=== PATIENT | male | born 1985 ===

== ENCOUNTER 2024-02-21 15:22 | Emergency (ER) | payer BC ==
[2024-02-21 15:31] VITALS: TEMP 98.2
--- NOTE | 2024-02-21 15:55 | ED ---
General Adult HPI - General Chief complaint: Recheck/Abnormal Lab/Rx Stated complaint: back pain, abn blood pressure Time Seen by Provider: 02/21/24 15:33 Source: patient Mode of arrival: ambulatory Limitations: no limitations - History of Present Illness Initial comments: Dictation was produced using [employer] dictation software. please excuse any grammatical, word or spelling errors. Chief Complaint: 38-year-old male with hypertension History of Present Illness: Patient is a 38-year-old male presents emergency department for hypertension. Patient is been at [facility] for allegedly 3 to 4 days. States that he had his blood pressure checked and was found to be high. States that systolic was measured 170s. He was brought to the emergency department. Patient has no complaints. Denies any chest pain shortness of breath strokelike symptoms or headache. Patient would like his blood pressure addressed so that he can go back to [facility]. Patient states he is at [facility] for detox from alcohol The ROS documented in this emergency department record has been reviewed and confirmed by me. Those systems with pertinent positive or negative responses have been documented in the HPI. All other systems are other negative and/or noncontributory. - Related Data Previous Rx's Medication Instructions Recorded hydroCHLOROthiazide 12.5 mg PO DAILY 7 Days #7 cap 02/21/24 Allergies Allergy/AdvReac Type Severity Reaction Status Date / Time lorazepam [From Ativan] Allergy Hallucinati Verified 02/21/24 15:31 ons Review of Systems ROS Statement: Those systems with pertinent positive or pertinent negative responses have been documented in the HPI. ROS Other: All systems not noted in ROS Statement are negative. Past Medical History Past Medical History: GERD/Reflux, Hypertension Additional Past Medical History / Comment(s): Gout, Migraines, History of Any Multi-Drug Resistant Organisms: None Reported Past Surgical History: Adenoidectomy, Tonsillectomy Past Psychological History: Anxiety Smoking Status: Vaper Past Alcohol Use History: Abuse, Daily Past Drug Use History: Marijuana General Exam - General Exam Comments Initial Comments: PHYSICAL EXAM: General Impression: Alert and oriented x3, not in acute distress HEENT: Normocephalic atraumatic, extra-ocular movements intact, pupils equal and reactive to light bilaterally, mucous membranes moist. Cardiovascular: Heart regular rate and rhythm Chest: Able to complete full sentences, no retractions, no tachypnea Abdomen: abdomen soft, non-tender, non-distended, no organomegaly Musculoskeletal: Pulses present and equal in all extremities, no peripheral edema Motor: no focal deficits noted Neurological: CN II-XII grossly intact, no focal motor or sensory deficits noted Skin: Intact with no visualized rashes Psych: Normal affect and mood Limitations: no limitations Course Vital Signs 02/21/24 02/21/24 02/21/24 15:26 16:20 17:48 Temperature 98.2 F Pulse Rate 77 75 Respiratory 16 18 Rate Blood Pressure 198/116 165/109 159/99 O2 Sat by Pulse 100 99 Oximetry Medical Decision Making - Medical Decision Making Was pt. sent in by a medical professional or institution (, PA, INSURANCE ACCOUNT MANAGER, urgent care, hospital, or snf...) When possible be specific @ -No Did you speak to anyone other than the patient for history (EMS, parent, family, police, friend...)? What history was obtained from this source @ -No Did you review nursing and triage notes (agree or disagree)? Why? @ -I reviewed and agree with nursing and triage notes Were old charts reviewed (outside hosp., previous admission, EMS record, old EKG, old radiological studies, urgent care reports/EKG's, snf records)? Report findings @ -No old charts were reviewed Differential Diagnosis (chest pain, altered mental status, abdominal pain women, abdominal pain men, vaginal bleeding, musculoskeletal, weakness, fever, dyspnea, syncope, headache, dizziness, GI bleed, back pain, seizure, CVA, palpatations, mental health)? @ -Not applicable EKG interpreted by me (3pts min.). @ -None done X-rays interpreted by me (1pt min.). @ -None done CT interpreted by me (1pt min.). @ -None done U/S interpreted by me (1pt. min.). @ -None done What testing was considered but not performed or refused? (CT, X-rays, U/S, labs)? Why? @ -None What meds were considered but not given or refused? Why? @ -None Was smoking cessation discussed for >3mins.? @ -No Were there social determinants of health that impacted care today? How? (Homelessness, low income, unemployed, alcoholism, drug addiction, transportation, low edu. Level, literacy, decrease access to med. care, snf, rehab)? @ -No Was there de-escalation of care discussed even if they declined (Discuss DNR or withdrawal of care, Hospice)? DNR status @ -No What co-morbidities impacted this encounter? (DM, HTN, Smoking, COPD, CAD, Cancer, CVA, ARF, Chemo, Hep., AIDS, mental health diagnosis, sleep apnea, morbid obesity)? @ -None Was patient admitted / discharged? Hospital course, mention meds given and route, prescriptions, significant lab abnormalities, going to OR and other pertinent info. @ -38-year-old male presents to the emergency department for asymptomatic hypertension. Currently at [facility]. Vital signs upon arrival shows blood pressure of 198/116. Repeat is 165/109. Patient does have history of hypertension. States that he takes atenolol once daily. Patient has no symptoms of hypertensive emergency. Laboratory evaluation obtained. CBC metabolic panel is within acceptable limits. Slight hypokalemia 3.2. Patient given p.o. potassium. Disposition options were discussed. Patient offered hydrochlorothiazide to be added to his current blood pressure regimen. Patient also told that he could opt to not take it and to follow-up with his primary care doctor instead. Patient states that he would like to try hydrochlorothiazide for couple weeks. Repeat blood pressure was 159/99. Return precautions discussed. Patient agreeable with discharge Did you discuss the management of the patient with other professionals (professionals i.e. , PA, INSURANCE ACCOUNT MANAGER, lab, RT, psych nurse, social worker delinquency prevention, application assistant, teacher, correction officer reformatory, test case developer)? Give summary @ -No Was critical care preformed (if so, how long)? @ -No Undiagnosed new problem with uncertain prognosis? @ -No Drug Therapy requiring intensive monitoring for toxicity (Heparin, Nitro, Insulin, Cardizem)? @ -No Were any procedures done? @ -No Diagnosis/symptom? Acute, or Chronic, or Acute on Chronic? Uncomplicated (wi thout systemic symptoms) or Complicated (systemic symptoms)? @ -Asymptomatic hypertension Side effects of treatment? @ -No Exacerbation, Progression, or Severe Exacerbation? @ -No Poses a threat to life or bodily function? How? (Chest pain, [place], [place], pneumonia, PE, COPD, DKA, ARF, appy, cholecystitis, CVA, Diverticulitis, Homicidal, Suicidal, threat to staff... and all critical care pts) @ -No - Lab Data Result diagrams: 02/21/24 16:41 02/21/24 16:41 Lab Results 02/21/24 02/21/24 Range/Units 16:41 16:41 WBC 5.9 (3.8-10.6) k/uL RBC 4.91 (4.30-5.90) m/uL Hgb 13.9 (13.0-17.5) gm/dL Hct 43.2 (39.0-53.0) % MCV 88.0 (80.0-100.0) fL MCH 28.3 (25.0-35.0) pg MCHC 32.2 (31.0-37.0) g/dL RDW 13.2 (11.5-15.5) % Plt Count 153 (150-450) k/uL MPV 10.5 Neutrophils % 64 % Lymphocytes % 23 % Monocytes % 9 % Eosinophils % 1 % Basophils % 1 % Neutrophils # 3.8 (1.3-7.7) k/uL Lymphocytes # 1.4 (1.0-4.8) k/uL Monocytes # 0.5 (0-1.0) k/uL Eosinophils # 0.1 (0-0.7) k/uL Basophils # 0.1 (0-0.2) k/uL Sodium 135 L (137-145) mmol/L Potassium 3.2 L (3.5-5.1) mmol/L Chloride 99 (98-107) mmol/L Carbon Dioxide 24 (22-30) mmol/L Anion Gap 12 mmol/L BUN 10 (9-20) mg/dL Creatinine 0.65 L (0.66-1.25) mg/dL Est GFR (CKD-EPI)AfAm >90 (>60 ml/min/1.73 sqM) Est GFR (CKD-EPI)NonAf >90 (>60 ml/min/1.73 sqM) Glucose 93 (74-99) mg/dL Calcium 9.5 (8.4-10.2) mg/dL Total Bilirubin 1.5 H (0.2-1.3) mg/dL AST 29 (17-59) U/L ALT 14 (4-49) U/L Alkaline Phosphatase 58 (38-126) U/L Total Protein 7.4 (6.3-8.2) g/dL Albumin 4.6 (3.5-5.0) g/dL Disposition Clinical Impression: Hypertension Disposition: HOME SELF-CARE Condition: Good Instructions (If sedation given, give patient instructions): Hy drochlorothiazide (By mouth) Prescriptions: hydroCHLOROthiazide 12.5 mg PO DAILY 7 Days #7 cap Is patient prescribed a controlled substance at d/c from ED?: No Referrals: Jose Barbosa MD [Primary Care Provider] - 1-2 days Time of Disposition: 17:57
[2024-02-21 16:56] LABS: Basophils # (A) 0.1 k/uL (0-0.2); Basophils % (A) 1 %; Eosinophils # (A) 0.1 k/uL (0-0.7); Eosinophils % (A) 1 %; HCT 43.2 % (39.0-53.0); HGB 13.9 gm/dL (13.0-17.5); Lymphocytes # (A) 1.4 k/uL (1.0-4.8); Lymphocytes % (A) 23 %; MCH 28.3 pg (25.0-35.0); MCHC 32.2 g/dL (31.0-37.0); Mean Platelet Volume 10.5; Monocytes # (A) 0.5 k/uL (0-1.0); Monocytes % (A) 9 %; Neutrophils # (A) 3.8 k/uL (1.3-7.7); Neutrophils % (A) 64 %; Platelet Count 153 k/uL (150-450); RBC 4.91 m/uL (4.30-5.90); RDW 13.2 % (11.5-15.5); WBC 5.9 k/uL (3.8-10.6)
[2024-02-21 17:12] LABS: ALT 14 U/L (4-49); AST 29 U/L (17-59); Albumin 4.6 g/dL (3.5-5.0); Alkaline Phosphatase 58 U/L (38-126); Anion Gap 12 mmol/L; Carbon Dioxide 24 mmol/L (22-30); Chloride 99 mmol/L (98-107); Sodium 135 mmol/L (137-145); Total Protein 7.4 g/dL (6.3-8.2)
[2024-02-21 17:13] LABS: Glucose 93 mg/dL (74-99)
[2024-02-21 17:14] LABS: African American GFR (CKD) >90 (>60 ml/min/1.73 sqM); Blood Urea Nitrogen 10 mg/dL (9-20); Calcium 9.5 mg/dL (8.4-10.2); Non-African American GFR(CKD) >90 (>60 ml/min/1.73 sqM); Potassium 3.2 mmol/L (3.5-5.1); Total Bilirubin 1.5 mg/dL (0.2-1.3)
[2024-02-21 17:50] VITALS: BP 159/99; PULSE 75; RESP 18
[2024-02-21] MEDS: POTASSIUM CHLORIDE ER 20 MEQ TAB.ER PO STA (18:11)
[2024-02-21] MEDS: hydroCHLOROthiazide 12.5 MG CAP PO STA (18:12)
== END 2024-02-21 18:23 | disposition home or self-care (01) ==
LOC: EC 15:22
DX: I10 Essential (primary) hypertension (principal); F17.290 Nicotine dependence, other tobacco product, uncomplicated; Z88.8 Allergy status to other drugs, medicaments and biological substances
CPT/HCPCS: 36415; 80053; 85025; 99283

== ENCOUNTER 2024-03-02 19:35 | Emergency (ER) | payer OTHER ==
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
[2024-03-02] MEDS: KETOROLAC 15 MG/ML 1 ML VIAL IVP STA ×2 (20:18→21:50)
[2024-03-02] MEDS: SODIUM CHLORIDE 0.9% 1,000 ML IV STA (20:19)
[2024-03-02 20:31] LABS: Basophils # (A) 0.1 k/uL (0-0.2); Basophils % (A) 1 %; Eosinophils # (A) 0.1 k/uL (0-0.7); Eosinophils % (A) 1 %; HCT 36.7 % (39.0-53.0); Lymphocytes % (A) 34 %; MCHC 32.6 g/dL (31.0-37.0); Mean Platelet Volume 9.1; Monocytes # (A) 0.3 k/uL (0-1.0); Monocytes % (A) 5 %; Neutrophils # (A) 3.3 k/uL (1.3-7.7); Neutrophils % (A) 56 %; Platelet Count 187 k/uL (150-450); RBC 4.13 m/uL (4.30-5.90); RDW 13.7 % (11.5-15.5); WBC 5.9 k/uL (3.8-10.6)
[2024-03-02 20:39] LABS: ALT 15 U/L (4-49); AST 24 U/L (17-59); African American GFR (CKD) >90 (>60 ml/min/1.73 sqM); Alkaline Phosphatase 41 U/L (38-126); Amylase 41 U/L (30-110); Anion Gap 4 mmol/L; Blood Urea Nitrogen 17 mg/dL (9-20); Carbon Dioxide 29 mmol/L (22-30); Chloride 107 mmol/L (98-107); Glucose 114 mg/dL (74-99); Lipase 212 U/L (23-300); Non-African American GFR(CKD) >90 (>60 ml/min/1.73 sqM); Potassium 4.1 mmol/L (3.5-5.1); Sodium 140 mmol/L (137-145); Total Bilirubin 0.3 mg/dL (0.2-1.3); Total Protein 6.5 g/dL (6.3-8.2)
--- NOTE | 2024-03-02 21:14 | CT ---
EXAMINATION TYPE: CT abdomen pelvis w con CT DLP: 1386.5 mGycm, Automated exposure control for dose reduction was used. DATE OF EXAM: 03/02/2024 8:38 PM COMPARISON: CT abdomen pelvis most recent from CLINICAL INDICATION:Male, 38 years old with history of abdominal pain, hernia; Umbilical pain x4 days . TECHNIQUE: Axial CT abdomen pelvis w con;Sagittal and coronal reformats were created on a separate w orkstation. Contrast used:100ml mL of Isovue 300 with IV Contrast, (none if empty) Oral contrast used: without Oral Contrast (none if empty) FINDINGS: LOWER CHEST: Unremarkable ABDOMEN LIVER: Subcentimeter hypoattenuated foci seen to small to characterize. The liver is enlarged measuri ng 20.0 cm in craniocaudal dimension.. GALLBLADDER AND BILE DUCTS: The gallbladder is nondistended with no gross abnormality. No biliary karthikeyan marija dilatation. PANCREAS: Unremarkable. SPLEEN: The spleen is at the upper limits of normal measuring 13.0 cm in craniocaudal dimension. ADRENAL GLANDS: Unremarkable. KIDNEYS AND URETERS: No evidence of hydronephrosis or renal calculus. The ureters are unremarkable. PELVIS BLADDER: Unremarkable REPRODUCTIVE: Unremarkable. ABDOMEN & PELVIS STOMACH AND BOWEL: Stomach is grossly unremarkable. Small bowel is of normal caliber. There is a smal l diverticulum suggested at the second portion of the duodenum. Few scattered colonic diverticula are seen without associated fat stranding. The appendix is visualized and is within normal limits. No ev idence of bowel obstruction. PERITONEUM/RETROPERITONEUM: No evidence of pneumoperitoneum or free fluid. VASCULATURE: No evidence of aortic aneurysm. Prominent mesenteric vessels are seen along the hilum of the spleen and stomach. MUSCULOSKELETAL: No acute osseous abnormalities LYMPH NODES: No gross evidence for lymphadenopathy. SOFT TISSUE/ABDOMINAL WALL: Supraumbilical abdominal wall fat filled hernia is noted with a few mesen teric vessels contained within the herniated sac. There is an associated 2.8 cm abdominal wall defect . IMPRESSION: 1. Ventral supraumbilical abdominal wall hernia containing fat and a few mesenteric vessels. 2. Hepatomegaly with prominent upper abdominal mesenteric vessels suggestive of portal hypertension. Correlate for history of cirrhosis. 3. Colonic diverticulosis.
[2024-03-02 21:29] VITALS: RESP 16
[2024-03-02] MEDS: COLCHICINE 0.6 MG EACH PO STA ×2 (21:50→23:29)
[2024-03-02] MEDS: HYDROmorphone 1 MG/ML 1 ML SYRINGE IVP STA (21:51)
[2024-03-02] MEDS: ONDANSETRON 4 MG/2 ML VIAL IVP STA (21:51)
[2024-03-02 22:15] VITALS: PULSE 80
[2024-03-02] MEDS: ORPHENADRINE 30 MG/ML 2 ML VIAL IVP STA (23:31)
[2024-03-02 23:36] VITALS: BP 141/91; TEMP 98.2
== END 2024-03-02 23:48 | disposition home or self-care (01) ==
LOC: EC 19:35
DX: G89.29 Other chronic pain (principal); K43.9 Ventral hernia without obstruction or gangrene; K57.30 Diverticulosis of large intestine without perforation or abscess without bleeding; M10.9 Gout, unspecified; M54.9 Dorsalgia, unspecified; F17.290 Nicotine dependence, other tobacco product, uncomplicated; Z88.5 Allergy status to narcotic agent; Z88.8 Allergy status to other drugs, medicaments and biological substances
CPT/HCPCS: 36415; 80053; 82150; 83605; 83690; 85025; 74177; 99284; 96374; 96375 ×2; 96376 ×2; 96361; J2360; J2405; J1170; J1885; Q9967